=== PATIENT | male | born 1985 | race Caucasian/White ===

== ENCOUNTER 2017-11-14 11:19 | Emergency (ER) | payer SELFPAY ==
[~2017-11-14] VITALS: Ht 154.9 cm; Wt 55.3 kg
[2017-11-14 11:29] VITALS: Ht 154.9 cm; Wt 55.3 kg
[2017-11-14 12:05] LABS: microscopic required? YES; urine erythrocyte NEGATIVE (NEGATIVE)
[2017-11-14 12:08] LABS: BASOPHIL % 0.3 % (0-2); PLATELET COUNT 246 x10^3mcL (130-400); RED CELL DISTRIBUTION WIDTH 12.3 % (11.5-14.5)
[2017-11-14 12:21] LABS: CALCIUM 9.1 mg/dL (8.5-10.1); CARBON DIOXIDE 28.8 mmol/L (21-32); CHLORIDE SERUM 101 mmol/L (98-107); CREATININE SERUM 1.2 mg/dL (0.7-1.3); GFR1 > 60 mL/min; GLUCOSE SERUM 92 mg/dL (74-106); POTASSIUM SERUM 4.2 mmol/L (3.5-5.1); SODIUM SERUM 136 mmol/L (136-145)
[2017-11-14 12:29] LABS: ALKALINE PHOSPHATASE 87 U/L (46-116); ALT/SGPT 31 U/L (16-63); AST/SGOT 20 U/L (15-37); BILIRUBIN TOTAL 0.9 mg/dL (0.20-1.00); TOTAL PROTEIN, SERUM 7.5 g/dL (6.4-8.2)
[2017-11-14 13:27] VITALS: BP 128/80
== END 2017-11-14 13:27 | disposition home or self-care (01) ==
LOC: ED 11:19
PROVIDERS: Emergency Medicine
DX: N34.2 Other urethritis (principal); N50.3 Cyst of epididymis; Z90.89 Acquired absence of other organs
CPT/HCPCS: 87491; 87591; J0696; J1885